=== PATIENT | female | born 1995 | race Two or more races ===

== ENCOUNTER 2017-07-08 04:31 | Inpatient (IN) | payer SELFPAY ==
[~2017-07-08] VITALS: Ht 154.9 cm; Wt 56.7 kg
--- NOTE | 2017-07-08 05:02 | PHYS DOC ---
Adult General Chief Complaint Chief Complaint: ABDOMINAL PAIN IN HPI HPI Patient is a 21 year old female who presents with abdominal pain in . The patient reports 2 day history of upper abdominal pain associated with many episodes of vomiting. She reports white vaginal discharge. She denies fevers/chills, hematemesis, diarrhea, constipation, dysuria/hematuria, vaginal bleeding. She is , at 7w0d by dates. Seen in clinic earlier this week for vaginal discharge, reports no significant finding after pelvic with cultures, & she denies possibility of sexually transmitted infection. She has not yet established care with an OB. Review of Systems Review of Systems Constitutional: Denies fever or chills HENT: Denies nasal congestion or sore throat Respiratory: Denies cough or shortness of breath Cardiovascular: Denies chest pain or edema GI: Reports abdominal pain, nausea, vomiting, denies bloody stools or diarrhea : Denies dysuria or hematuria, reports vaginal discharge. Musculoskeletal: Denies back pain or joint pain Integument: Denies rash or skin lesions Neurologic: Denies headache, focal weakness or sensory changes Current Medications Current Medications Current Medications Medications (Trade) Dose Ordered Sig/Yvrose Start Time Stop Time Status Last Admin Dose Admin Famotidine (Pepcid) 20 mg 1X ONCE 07/08/17 06:30 07/08/17 06:31 DC 07/08/17 06:30 20 MG Fentanyl Citrate (Fentanyl 2ml Vial) 50 mcg PRN Q15MIN PRN 07/08/17 05:30 07/09/17 05:29 07/08/17 05:30 50 MCG Lorazepam (Ativan) 1 mg 1X ONCE 07/08/17 06:30 07/08/17 06:31 DC 07/08/17 06:30 1 MG Metoclopramide HCl (Reglan) 10 mg 1X ONCE 07/08/17 05:30 07/08/17 05:31 DC 07/08/17 05:30 10 MG Ondansetron HCl (Zofran) 4 mg 1X ONCE 07/08/17 06:30 07/08/17 06:31 DC 07/08/17 06:30 4 MG Sodium Chloride 1,000 ml @ 250 mls/hr Q4H 07/08/17 08:40 07/08/17 12:39 DC 07/08/17 10:02 250 MLS/HR Allergies Allergies Allergies Coded Allergies Type Severity Reaction Last Updated Verified Penicillins Allergy Intermediate 07/08/17 Yes codeine Allergy Intermediate 07/08/17 Yes vancomycin Allergy Intermediate 07/08/17 Yes Physical Exam Physical Exam Constitutional: Well developed, well nourished, no acute distress, non-toxic appearance. HENT: Normocephalic, atraumatic, bilateral external ears normal, oropharynx moist, nose normal. Eyes: conjunctiva normal, no discharge. Neck: supple, no stridor. Cardiovascular: RRR, no murmurs, no edema. Lungs & Thorax: LCTAB, no wheezing, no respiratory distress. Abdomen: soft, RUQ & LUQ tenderness with voluntary guarding, no rebound tenderness, no RLQ tenderness, no masses or pulsatile masses, nondistended. Skin: Warm, dry, no erythema, no rash. Back: No CVA tenderness. Extremities: No tenderness, no edema. Neurologic: Alert and oriented X 3, no focal deficits noted. Psychologic: Affect normal, judgement normal, mood normal. Current Patient Data Vital Signs Vital Signs Date Time Temp Pulse Resp B/P (MAP) Pulse Ox O2 Delivery O2 Flow Rate FiO2 07/08/17 06:30 130 116/56 (76) 07/08/17 06:00 16 98 Room Air 07/08/17 05:08 98.0 98.0 Lab Values Laboratory Tests Test 07/08/17 04:58 07/08/17 05:01 07/08/17 05:05 Urine Collection Type Unknown Urine Color Yellow Urine Clarity Clear Urine pH 6.5 Urine Specific Rousseau >=1.030 Urine Protein 30 mg/dL (NEG-TRACE) Urine Glucose (UA) Negative mg/dL (NEG) Urine Ketones (Stick) >=80 mg/dL (NEG) Urine Blood Negative (NEG) Urine Nitrite Negative (NEG) Urine Bilirubin Small (NEG) Urine Urobilinogen Dipstick 1.0 mg/dL (0.2 mg/dL) Urine Leukocyte Esterase Negative (NEG) Urine RBC Occ /HPF (0-2) Urine WBC 1-4 /HPF (0-4) Urine Squamous Epithelial Cells Few /LPF Urine Bacteria Few /HPF (0-FEW) Urine Mucus Mod /LPF White Blood Count 6.3 x10^3/uL (4.0-11.0) Red Blood Count 4.82 x10^6/uL (3.50-5.40) Hemoglobin 12.8 g/dL (12.0-15.5) Hematocrit 39.2 % (36.0-47.0) Mean Corpuscular Volume 82 fL (79-100) Mean Corpuscular Hemoglobin 27 pg (25-35) Mean Corpuscular Hemoglobin Concent 33 g/dL (31-37) Red Cell Distribution Width 16.7 % (11.5-14.5) H Platelet Count 274 x10^3/uL (140-400) Neutrophils (%) (Auto) 79 % (31-73) H Lymphocytes (%) (Auto) 13 % (24-48) L Monocytes (%) (Auto) 7 % (0-9) Eosinophils (%) (Auto) 0 % (0-3) Basophils (%) (Auto) 1 % (0-3) Neutrophils # (Auto) 5.0 x10^3uL (1.8-7.7) Lymphocytes # (Auto) 0.8 x10^3/uL (1.0-4.8) L Monocytes # (Auto) 0.5 x10^3/uL (0.0-1.1) Eosinophils # (Auto) 0.0 x10^3/uL (0.0-0.7) Basophils # (Auto) 0.0 x10^3/uL (0.0-0.2) D-Dimer (Elena) 0.43 ug/mlFEU (0.00-0.50) Maternal Serum HCG Beta Subunit 74623 mIU/mL (0-5) H Sodium Level 139 mmol/L (136-145) Potassium Level 3.6 mmol/L (3.5-5.1) Chloride Level 102 mmol/L (98-107) Carbon Dioxide Level 26 mmol/L (21-32) Anion Gap 11 (6-14) Blood Urea Nitrogen 16 mg/dL (7-20) Creatinine 0.7 mg/dL (0.6-1.0) Estimated GFR (Cockcroft-Gault) 106.7 BUN/Creatinine Ratio 23 (6-20) H Glucose Level 106 mg/dL (70-99) H Calcium Level 9.6 mg/dL (8.5-10.1) Total Bilirubin 0.4 mg/dL (0.2-1.0) Aspartate Amino Transferase (AST) 18 U/L (15-37) Alanine Aminotransferase (ALT) 27 U/L (14-59) Alkaline Phosphatase 62 U/L (46-116) Total Protein 8.2 g/dL (6.4-8.2) Albumin 3.9 g/dL (3.4-5.0) Albumin/Globulin Ratio 0.9 (1.0-1.7) L Lipase 222 U/L (73-393) POC Urine HCG, Qualitative Hcg positive (Negative) Laboratory Tests 07/08/17 05:01 Laboratory Tests 07/08/17 05:01 EKG EKG [] Radiology/Procedures Radiology/Procedures Pelvic ultrasound read by the radiologist. Intrauterine gestational sac and yolk sac identified. pole measuring 7 weeks 1 day, but no heart tones. Concerning for demise. Ovaries normal. Small amount of free fluid. Right upper quadrant ultrasound read by the radiologist. No abnormalities including normal gallbladder.[] Course & Med Decision Making Course & Med Decision Making Pertinent Labs and Imaging studies reviewed. (See chart for details) The patient presents with abdominal pain & vomiting in first trimester of . Gave IV fluids & reglan. Obtained labs, UA, US. Radiology results pending at the end of my shift. Will transfer care to Dr. Elizondo to follow up results & disposition accordingly. The patient is in stable condition at the end of my shift. Amita Resendiz MD I assumed care of the patient at 0600. Dr. Espana and I discussed the patient 's case. We are waiting for ultrasound results. ED RN advised me that the patient was having dry heaves, she had become tachycardic, seemed to be very anxious, shaky, and hyperventilating. I went to visit the patient. The patient has vomited a small amount of fluid and is actively having dry heaves, she is tremulous, heart rate in the 130s. Patient states that she feels like she might be having a panic attack. Patient does not have a history of panic attacks or anxiety, but she said "I've seen my aunt go through a panic attack". Patient's pulse ox on room air is in the high 90s. She is having a sinus tachycardia in the 1 teens to 1:30. He has had only about 200 mL of her IV saline bolus, the IV is positional. Because her symptom was dry heaves and vomiting, with some epigastric discomfort , I ordered IV Zofran and IV Pepcid. A few minutes later, she continued to have tachycardia and shaking so I ordered 1 mg Ativan. 0700 ED nursing staff informed me that the patient was up to the bathroom in a wheelchair, she was very lightheaded, she became tachycardic into the 130s with that exertion. I rechecked the patient. She appears moderately sedated from the Ativan. She certainly is no longer anxious. I discussed the findings of her ultrasounds, including hospital demise. The patient told me that she felt like she might be having a miscarriage. I'm not sure based on what. The patient states this was an unplanned . Her OB doctor, in [facility], where she previously lived, had advised her to not get again because she had a lot of bleeding with her last and required a blood transfusion. She was using condoms and the condom broke. The patient states she is still having dry heaves. The patient has had her entire liter of normal saline and her heart rate is still running in the 120s to 140s with just minimal stimulation. We will check a d-dimer. We'll give her a second liter of normal saline. D-dimer is normal. The patient continued to have dry heaves and tachycardic episodes. I believe she should be admitted for further IV fluids, IV antiemetics , and further observation. She may be more dry than 1 L. A second liter was started. I discussed the case with Dr. Harp , on-call for NURSE [employer]CRU[employer]. She will admit the patient. I wrote bridge orders. [] Dragon Disclaimer Dragon Disclaimer This electronic medical record was generated, in whole or in part, using a voice recognition dictation system. Departure Departure Impression: Primary Impression: Hyperemesis gravidarum with dehydration Additional Impressions: First trimester Tachycardia Disposition: ADMITTED INPATIENT Condition: STABLE Problem Qualifiers AMITA RESENDIZ MD Jul 08, 2017 05:02 SAW ELIZONDO MD Jul 08, 2017 07:37
[2017-07-08 05:11] LABS: BASO % 1 % (0-3); EOS % 0 % (0-3); HEMATOCRIT 39.2 % (36.0-47.0); HEMOGLOBIN 12.8 g/dL (12.0-15.5); LYMPH # 0.8 x10^3/uL (1.0-4.8); LYMPH % 13 % (24-48); MEAN CORPUSCULAR HEMOGLOBIN 27 pg (25-35); MEAN CORPUSCULAR HGB CONC 33 g/dL (31-37); MEAN CORPUSCULAR VOLUME 82 fL (79-100); MONO % 7 % (0-9); NEUT % 79 % (31-73); PLATELET COUNT 274 x10^3/uL (140-400); RED BLOOD COUNT 4.82 x10^6/uL (3.50-5.40); RED CELL DISTRIBUTION WIDTH 16.7 % (11.5-14.5); WHITE BLOOD COUNT 6.3 x10^3/uL (4.0-11.0)
[2017-07-08 05:13] LABS: BILIRUBIN,URINE SMALL (NEG); GLUCOSE,URINE NEGATIVE (NEG); NITRITE,URINE NEGATIVE (NEG); PH,URINE 6.5; PROTEIN,URINE 30 mg/dL (NEG-TRACE)
[2017-07-08] MEDS ORDERED: IV NORMAL SALINE 1000ML BAG 1,000 ML IV ONE ×2 (05:15→07:30)
[2017-07-08 05:20] LABS: BACTERIA,URINE FEW /HPF (0-FEW); RBC,URINE OCC /HPF (0-2); SQUAMOUS EPITHELIAL CELL,UR FEW /LPF
[2017-07-08 05:25] LABS: CALCIUM 9.6 mg/dL (8.5-10.1); CREATININE 0.7 mg/dL (0.6-1.0); GFR 106.7; POTASSIUM 3.6 mmol/L (3.5-5.1)
[2017-07-08 05:30] LABS: ALBUMIN 3.9 g/dL (3.4-5.0); ALBUMIN/GLOBULIN RATIO 0.9 (1.0-1.7); TOTAL BILIRUBIN 0.4 mg/dL (0.2-1.0); TOTAL PROTEIN 8.2 g/dL (6.4-8.2)
[2017-07-08] MEDS ORDERED: fentaNYL PF VIAL 100 MCG/2 ML VIAL IV PRN (05:30)
[2017-07-08] MEDS ORDERED: METOCLOPRAMIDE HCL 10 MG/2 ML VIAL. IV ONE (05:30)
--- NOTE | 2017-07-08 06:06 | RAD ---
Abdominal ultrasound right upper quadrant: Reason for examination: Right upper quadrant pain with nausea and vomiting for 2 days. The pancreas was poorly visualized due to bowel gas. The liver appears to be normal in size at 13.4 cm in greatest dimension and is homogeneous in echogenicity. Right kidney measures 10.9 x 4.2 x 4.4 cm in greatest dimensions and shows normal cortical medullary differentiation, good blood flow and no evidence of mass or hydronephrosis. Gallbladder shows no cholelithiasis, sludge or wall thickening. Common bile duct is normal in caliber at 2.7 mm. IMPRESSION: Pancreas is not well visualized due to bowel gas. No other focal abnormalities evident in the right upper quadrant. Electronically signed by: Lorena Vásquez MD (07/08/2017 6:03 AM) [id number]
--- NOTE | 2017-07-08 06:13 | RAD ---
Obstetric ultrasound less than 14 weeks, transabdominal and transvaginal: Reason for examination: Right upper quadrant pain with nausea and vomiting for 2 days. Transabdominally, the uterus measures 10.4 x 3.9 cm longitudinally. Intrauterine gestational sac appears be present. The left ovary appears to measure 1.7 x 2.0 x 1.1 cm in greatest dimension. Right ovary appears to measure 2.8 x 1.7 x 2.0 cm in greatest dimension. Possible yolk sac is identified transabdominally. Transvaginally, the uterus measures 9.7 x 5.2 x 6 cm in greatest dimension. Intrauterine gestational sac is present and a yolk sac is identified but appears to be the pole measures 1.1 cm in greatest dimension which would correspond to gestational age of 7 weeks 1 day. Cardiac activity however is not identified. The right ovary transvaginally measures 2.0 x 2.3 x 1.9 cm in size without focal lesion. Left ovary appears to measure 1.4 x 2.5 x 1.5 cm in greatest dimension with no focal abnormality cervix is normal bleed and appears to be closed. A small amount of free fluid is seen in the pelvic cul-de-sac. IMPRESSION: Intrauterine gestational sac with a yolk sac identified and a possible pole with a size corresponding to gestational age of 7 weeks 1 day. No heart activity was identified. This would be consistent with demise. Recommend clinical correlation and follow-up. Electronically signed by: Lorena Vásquez MD (07/08/2017 6:11 AM) [facility]
[2017-07-08] MEDS ORDERED: FAMOTIDINE 20 MG/2 ML VIAL ONE (06:17)
[2017-07-08] MEDS ORDERED: ONDANSETRON PF 4 MG/2 ML VIAL. ONE (06:17)
[2017-07-08] MEDS ORDERED: FAMOTIDINE 20 MG/2 ML VIAL IVP ONE (06:30)
[2017-07-08] MEDS ORDERED: ONDANSETRON PF 4 MG/2 ML VIAL. IV ONE (06:30)
[2017-07-08] MEDS ORDERED: IV NORMAL SALINE 1000ML BAG 1,000 ML IV SCH (08:40)
[2017-07-08] MEDS ORDERED: ONDANSETRON PF 4 MG/2 ML VIAL. IV PRN (08:45)
[2017-07-08 10:05] VITALS: BP 93/55
--- NOTE | 2017-07-08 10:25 | PDOC ---
SUBJECTIVE Subjective 21 yrs old female G$P3 LMP MAY 18 7 weeks by sonogram no vaginal bleeding Has extreme nausea vomiting OBJECTIVE Vital Signs Vital Signs Date Time Temp Pulse Resp B/P (MAP) Pulse Ox O2 Delivery O2 Flow Rate FiO2 07/08/17 10:05 98.1 75 18 93/55 (68) 100 Room Air 98.1 07/08/17 06:30 130 116/56 (76) 07/08/17 06:00 110 16 105/55 (72) 98 Room Air 07/08/17 05:30 104 23 103/56 (72) 100 Room Air 07/08/17 05:08 98.0 96 16 103/55 (71) 97 Room Air 98.0 I & O Intake and Output 07/09/17 07:00 Intake Total 1000 ml Balance 1000 ml Intake IV Total 1000 ml PHYSICAL EXAM Physical Exam Vital siogns stable Has lot of Dehydration Tongue very Dry Patient getting IV fluids ASSESSMENT/PLAN Assessment/Plan Observation and further treatment Problems: COMMENT Lab Laboratory Tests Test 07/08/17 04:58 07/08/17 05:01 07/08/17 05:05 Urine Collection Type Unknown Urine Color Yellow Urine Clarity Clear Urine pH 6.5 Urine Specific Addison >=1.030 Urine Protein 30 mg/dL (NEG-TRACE) Urine Glucose (UA) Negative mg/dL (NEG) Urine Ketones (Stick) >=80 mg/dL (NEG) Urine Blood Negative (NEG) Urine Nitrite Negative (NEG) Urine Bilirubin Small (NEG) Urine Urobilinogen Dipstick 1.0 mg/dL (0.2 mg/dL) Urine Leukocyte Esterase Negative (NEG) Urine RBC Occ /HPF (0-2) Urine WBC 1-4 /HPF (0-4) Urine Squamous Epithelial Cells Few /LPF Urine Bacteria Few /HPF (0-FEW) Urine Mucus Mod /LPF White Blood Count 6.3 x10^3/uL (4.0-11.0) Red Blood Count 4.82 x10^6/uL (3.50-5.40) Hemoglobin 12.8 g/dL (12.0-15.5) Hematocrit 39.2 % (36.0-47.0) Mean Corpuscular Volume 82 fL (79-100) Mean Corpuscular Hemoglobin 27 pg (25-35) Mean Corpuscular Hemoglobin Concent 33 g/dL (31-37) Red Cell Distribution Width 16.7 % (11.5-14.5) Platelet Count 274 x10^3/uL (140-400) Neutrophils (%) (Auto) 79 % (31-73) Lymphocytes (%) (Auto) 13 % (24-48) Monocytes (%) (Auto) 7 % (0-9) Eosinophils (%) (Auto) 0 % (0-3) Basophils (%) (Auto) 1 % (0-3) Neutrophils # (Auto) 5.0 x10^3uL (1.8-7.7) Lymphocytes # (Auto) 0.8 x10^3/uL (1.0-4.8) Monocytes # (Auto) 0.5 x10^3/uL (0.0-1.1) Eosinophils # (Auto) 0.0 x10^3/uL (0.0-0.7) Basophils # (Auto) 0.0 x10^3/uL (0.0-0.2) D-Dimer (Elena) 0.43 ug/mlFEU (0.00-0.50) Maternal Serum HCG Beta Subunit 69608 mIU/mL (0-5) Sodium Level 139 mmol/L (136-145) Potassium Level 3.6 mmol/L (3.5-5.1) Chloride Level 102 mmol/L (98-107) Carbon Dioxide Level 26 mmol/L (21-32) Anion Gap 11 (6-14) Blood Urea Nitrogen 16 mg/dL (7-20) Creatinine 0.7 mg/dL (0.6-1.0) Estimated GFR (Cockcroft-Gault) 106.7 BUN/Creatinine Ratio 23 (6-20) Glucose Level 106 mg/dL (70-99) Calcium Level 9.6 mg/dL (8.5-10.1) Total Bilirubin 0.4 mg/dL (0.2-1.0) Aspartate Amino Transf (AST/SGOT) 18 U/L (15-37) Alanine Aminotransferase (ALT/SGPT) 27 U/L (14-59) Alkaline Phosphatase 62 U/L (46-116) Total Protein 8.2 g/dL (6.4-8.2) Albumin 3.9 g/dL (3.4-5.0) Albumin/Globulin Ratio 0.9 (1.0-1.7) Lipase 222 U/L (73-393) Bedside Urine HCG, Qualitative Hcg positive (Negative) STACEY MENDIOLA MD Jul 08, 2017 10:25
--- NOTE | 2017-07-08 10:47 | HP ---
ADMIT DATE: 07/08/2017 CHIEF COMPLAINT AND HISTORY OF PRESENT ILLNESS: This patient is a 21-year-old white female who is 4, para 3, LMP 05/18/2017, comes into the Emergency Room because of excessive nausea and vomiting, unable to eat, unable to drink. The patient was seen ER physician and admitted to the hospital because of hyperemesis and she also had an anxiety attack in the Emergency Room. PHYSICAL EXAMINATION: VITAL SIGNS: Being stable. HEAD, EYES, NOSE, THROAT: Exam within normal limits. The patient is quite anxious and tongue is dry, dehydration seen. ABDOMEN: Feels soft. PELVIC: Shows external genitalia being normal. Cervical os is closed. Uterus feels bulky. No adnexal masses are palpable. EXTREMITIES: No edema of feet. IMPRESSION: 4, early with hyperemesis. PLAN: IV fluids, observation and treatment. STACEY MENDIOLA MD DR: ELAN/keshia JOB#: [id number] / [id number]
[2017-07-08] MEDS ORDERED: MULT1TAB46 PO (14:15)
[2017-07-08 14:54] VITALS: BP 106/64
[2017-07-08] MEDS ORDERED: ACETAMINOPHEN 325 MG TABLET. PO PRN (19:30)
[2017-07-08] MEDS: IV DEXTROSE 5%-LACT RINGERS 1,000 ML IV SCH (19:46)
[2017-07-08] MEDS: ONDANSETRON PF 4 MG/2 ML VIAL. IV PRN (19:47)
[2017-07-08] MEDS ORDERED: ACETAMINOPHEN 325 MG SUPP.RECT. PR PRN (20:00)
[2017-07-08] MEDS ORDERED: ACETAMINOPHEN 650 MG SUPP.RECT. PR PRN (20:30)
[2017-07-08 23:11] VITALS: BP 102/63
[2017-07-09] MEDS: ONDANSETRON PF 4 MG/2 ML VIAL. IV PRN ×3 (02:41→19:42)
[2017-07-09] MEDS: IV DEXTROSE 5%-LACT RINGERS 1,000 ML IV SCH (02:42)
[2017-07-09 05:57] VITALS: BP 80/47
[2017-07-09 06:38] LABS: BASO % 1 % (0-3); EOS % 2 % (0-3); HEMATOCRIT 32.6 % (36.0-47.0); HEMOGLOBIN 10.5 g/dL (12.0-15.5); LYMPH # 1.6 x10^3/uL (1.0-4.8); LYMPH % 31 % (24-48); MEAN CORPUSCULAR HEMOGLOBIN 27 pg (25-35); MEAN CORPUSCULAR HGB CONC 32 g/dL (31-37); MEAN CORPUSCULAR VOLUME 82 fL (79-100); MONO % 14 % (0-9); NEUT % 52 % (31-73); PLATELET COUNT 212 x10^3/uL (140-400); RED BLOOD COUNT 3.98 x10^6/uL (3.50-5.40); RED CELL DISTRIBUTION WIDTH 16.9 % (11.5-14.5); WHITE BLOOD COUNT 5.1 x10^3/uL (4.0-11.0)
[2017-07-09 06:48] LABS: ALBUMIN 2.8 g/dL (3.4-5.0); ALBUMIN/GLOBULIN RATIO 0.8 (1.0-1.7); CALCIUM 8.4 mg/dL (8.5-10.1); CREATININE 0.6 mg/dL (0.6-1.0); GFR 127.5; POTASSIUM 3.2 mmol/L (3.5-5.1); TOTAL BILIRUBIN 0.3 mg/dL (0.2-1.0); TOTAL PROTEIN 6.1 g/dL (6.4-8.2)
--- NOTE | 2017-07-09 10:04 | PDOC ---
SUBJECTIVE Subjective Patient getting better Able to eat today No vomiting now OBJECTIVE Objective Vital signs stable Vital Signs Vital Signs Date Time Temp Pulse Resp B/P (MAP) Pulse Ox O2 Delivery O2 Flow Rate FiO2 07/09/17 05:57 98.1 69 12 80/47 (58) 98.1 07/08/17 23:11 98.2 76 14 102/63 (76) 98.2 07/08/17 17:32 97.3 97.3 07/08/17 14:54 83 18 106/64 (78) 100 Room Air 07/08/17 10:05 98.1 75 18 93/55 (68) 100 Room Air 98.1 PHYSICAL EXAM Physical Exam Abdomen soft No vaginal bleeding ASSESSMENT/PLAN Assessment/Plan Plan to keep patient one [place] day Plan dismissal tomorrow Problems: COMMENT Lab Laboratory Tests Test 07/09/17 05:35 White Blood Count 5.1 x10^3/uL (4.0-11.0) Red Blood Count 3.98 x10^6/uL (3.50-5.40) Hemoglobin 10.5 g/dL (12.0-15.5) Hematocrit 32.6 % (36.0-47.0) Mean Corpuscular Volume 82 fL (79-100) Mean Corpuscular Hemoglobin 27 pg (25-35) Mean Corpuscular Hemoglobin Concent 32 g/dL (31-37) Red Cell Distribution Width 16.9 % (11.5-14.5) Platelet Count 212 x10^3/uL (140-400) Neutrophils (%) (Auto) 52 % (31-73) Lymphocytes (%) (Auto) 31 % (24-48) Monocytes (%) (Auto) 14 % (0-9) Eosinophils (%) (Auto) 2 % (0-3) Basophils (%) (Auto) 1 % (0-3) Neutrophils # (Auto) 2.7 x10^3uL (1.8-7.7) Lymphocytes # (Auto) 1.6 x10^3/uL (1.0-4.8) Monocytes # (Auto) 0.7 x10^3/uL (0.0-1.1) Eosinophils # (Auto) 0.1 x10^3/uL (0.0-0.7) Basophils # (Auto) 0.0 x10^3/uL (0.0-0.2) Sodium Level 139 mmol/L (136-145) Potassium Level 3.2 mmol/L (3.5-5.1) Chloride Level 105 mmol/L (98-107) Carbon Dioxide Level 25 mmol/L (21-32) Anion Gap 9 (6-14) Blood Urea Nitrogen 6 mg/dL (7-20) Creatinine 0.6 mg/dL (0.6-1.0) Estimated GFR (Cockcroft-Gault) 127.5 BUN/Creatinine Ratio 10 (6-20) Glucose Level 105 mg/dL (70-99) Calcium Level 8.4 mg/dL (8.5-10.1) Total Bilirubin 0.3 mg/dL (0.2-1.0) Aspartate Amino Transf (AST/SGOT) 11 U/L (15-37) Alanine Aminotransferase (ALT/SGPT) 21 U/L (14-59) Alkaline Phosphatase 50 U/L (46-116) Total Protein 6.1 g/dL (6.4-8.2) Albumin 2.8 g/dL (3.4-5.0) Albumin/Globulin Ratio 0.8 (1.0-1.7) STACEY MENDIOLA MD Jul 09, 2017 10:04
[2017-07-09 11:30] VITALS: BP 103/52
[2017-07-09] MEDS: POTASSIUM CHLORIDE IV SCH ×2 (11:30→19:30)
[2017-07-09] MEDS: DEXTROSE 5% IV SCH ×2 (11:30→19:30)
[2017-07-09] MEDS: LACT RINGERS IV SCH ×2 (11:30→19:30)
[2017-07-09 18:12] VITALS: BP 89/57
[2017-07-09 22:30] VITALS: BP 89/55
[2017-07-10] MEDS: ONDANSETRON PF 4 MG/2 ML VIAL. IV PRN ×2 (00:33→06:20)
[2017-07-10 02:30] VITALS: BP 86/51
[2017-07-10] MEDS: POTASSIUM CHLORIDE IV SCH (06:19)
[2017-07-10] MEDS: DEXTROSE 5% IV SCH (06:19)
[2017-07-10] MEDS: LACT RINGERS IV SCH (06:19)
[2017-07-10 06:29] VITALS: BP 89/50
[2017-07-10 08:52] VITALS: BP 103/68
[2017-07-10 12:35] VITALS: BP 89/58
[2017-07-10] MEDS ORDERED: ONDANSETRON ODT 4 MG TAB.RAPDIS. PO PRN (12:45)
--- NOTE | 2017-07-10 12:57 | PDOC ---
SUBJECTIVE Subjective Patient feeling ok Likes to go home OBJECTIVE Objective Abdomen soft No bleeding No vomiting Vital Signs Vital Signs Date Time Temp Pulse Resp B/P (MAP) Pulse Ox O2 Delivery O2 Flow Rate FiO2 07/10/17 12:35 98.6 75 18 89/58 (68) 98 Room Air 98.6 07/10/17 09:02 26 Room Air 07/10/17 08:52 98.1 79 103/68 (80) 100 Room Air 98.1 07/10/17 06:29 98.1 85 16 89/50 (63) 99 Room Air 98.1 07/10/17 02:30 98.4 81 16 86/51 (63) 99 Room Air 98.4 07/09/17 22:30 98.1 74 16 89/55 (66) 98 Room Air 98.1 07/09/17 18:12 98.3 77 16 89/57 (68) 99 Room Air 98.3 I & O Intake and Output 07/11/17 07:00 Intake Total 850 ml Output Total 350 ml Balance 500 ml Intake Oral 350 ml IV Total 500 ml Output Urine Total 350 ml # Voids 1 PHYSICAL EXAM Physical Exam Abdomen soft Vital signs stable ASSESSMENT/PLAN Assessment/Plan Plan dismissal today will see her in one week in office Problems: STACEY MENDIOLA MD Jul 10, 2017 12:57
== END 2017-07-10 13:30 | disposition home or self-care (01) | DRG 781 ==
LOC: ER 04:31 → 3 NORTH 08:40
PROVIDERS: ADMIT Obstetrics & Gynecology; ATTEND Obstetrics & Gynecology
DX: O21.1 Hyperemesis gravidarum with metabolic disturbance (principal); O99.411 Diseases of the circulatory system complicating pregnancy, first trimester; O99.281 Endocrine, nutritional and metabolic diseases complicating pregnancy, first trimester; F41.9 Anxiety disorder, unspecified; Z88.1 Allergy status to other antibiotic agents; Z88.5 Allergy status to narcotic agent; Z88.0 Allergy status to penicillin; R00.0 Tachycardia, unspecified; O99.341 Other mental disorders complicating pregnancy, first trimester; Z3A.01 Less than 8 weeks gestation of pregnancy
CPT/HCPCS: 36415; 76705; 76801; 76817; 80053; 81001; 81025; 83690; 84702; 85025; 85379; 96361; 96374; 96375; J2060; J2405; J2765; J3010; J3480; J7030; S0028; 99285-25

== ENCOUNTER 2017-07-21 22:00 | Emergency (ER) | payer SELFPAY ==
[~2017-07-21] VITALS: Ht 154.9 cm; Wt 56.7 kg
[~2017-07-21 22:00] MED LIST: MULT1TAB46 PO
[2017-07-21] MEDS ORDERED: IV NORMAL SALINE 1000ML BAG 1,000 ML IV ONE ×2 (22:30→23:30)
[2017-07-21] MEDS ORDERED: PROMETHAZINE 12.5 MG in IV DEXTROSE 5% 50 ML IV PRN (22:30)
[2017-07-21 22:37] LABS: BASO # 0.1 x10^3/uL (0.0-0.2); BASO % 1 % (0-3); EOS % 1 % (0-3); HEMATOCRIT 40.9 % (36.0-47.0); HEMOGLOBIN 13.3 g/dL (12.0-15.5); LYMPH # 1.7 x10^3/uL (1.0-4.8); LYMPH % 16 % (24-48); MEAN CORPUSCULAR HEMOGLOBIN 27 pg (25-35); MEAN CORPUSCULAR HGB CONC 33 g/dL (31-37); MEAN CORPUSCULAR VOLUME 82 fL (79-100); MONO % 9 % (0-9); NEUT % 74 % (31-73); PLATELET COUNT 319 x10^3/uL (140-400); RED BLOOD COUNT 5.03 x10^6/uL (3.50-5.40); RED CELL DISTRIBUTION WIDTH 16.3 % (11.5-14.5); WHITE BLOOD COUNT 10.7 x10^3/uL (4.0-11.0)
[2017-07-21 23:28] LABS: CALCIUM 9.4 mg/dL (8.5-10.1); CREATININE 0.6 mg/dL (0.6-1.0); GFR 127.5; POTASSIUM 3.1 mmol/L (3.5-5.1)
[2017-07-21 23:34] LABS: ALBUMIN 3.8 g/dL (3.4-5.0); ALBUMIN/GLOBULIN RATIO 0.9 (1.0-1.7); TOTAL BILIRUBIN 0.4 mg/dL (0.2-1.0); TOTAL PROTEIN 8.1 g/dL (6.4-8.2)
--- NOTE | 2017-07-22 00:19 | PHYS DOC ---
Past Medical History Past Medical History: No Pertinent History Past Surgical History: No Surgical History Alcohol Use: None Drug Use: None Adult General Chief Complaint Chief Complaint: HEMATEMESIS/VOMITING BLOOD HPI HPI Patient is a 21 year old G4, P3, estimated 9 weeks' gestation female who presents with intermittent daily vomiting for the past several days. Patient was treated emergency department one week ago for the same. States she is unable to keep fluids or food down. Denies weight loss since . Denies chest pain palpitations, shortness of breath, fever chills, hematemesis, abdominal pain, urinary frequency urgency or dysuria. Patient has not yet established with [employer] service.[] Review of Systems Review of Systems Review symptoms as per history of present illness. All other review symptoms are negative. Current Medications Current Medications Current Medications Medications (Trade) Dose Ordered Sig/Yvrose Start Time Stop Time Status Last Admin Dose Admin Promethazine HCl 12.5 mg/Dextrose 50.5 ml @ 151.5 mls/ hr PRN Q6HRS PRN 07/21/17 22:30 07/21/17 22:50 151.5 MLS/HR Sodium Chloride 1,000 ml @ 1,000 mls/hr 1X ONCE 07/21/17 23:30 07/22/17 00:29 Allergies Allergies Allergies Coded Allergies Type Severity Reaction Last Updated Verified Penicillins Allergy Intermediate 07/08/17 Yes codeine Allergy Intermediate 07/08/17 Yes vancomycin Allergy Intermediate 07/08/17 Yes Physical Exam Physical Exam Constitutional: Well developed, well nourished, no acute distress, non-toxic appearance. [] HENT: Normocephalic, atraumatic, bilateral external ears normal, oropharynx moist, no oral exudates, nose normal. [] Eyes: PERRLA, EOMI, conjunctiva normal, no discharge. [] Neck: Normal range of motion, no tenderness, supple, no stridor. [] Cardiovascular:Heart rate regular rhythm, no murmur [] Lungs & Thorax: Bilateral breath sounds clear to auscultation [] Abdomen: Bowel sounds normal, soft, nontender.. [] Skin: Warm, dry, no erythema, no rash. [] Back: No tenderness, no CVA tenderness. [] Extremities: No tenderness, no cyanosis, no clubbing, ROM intact, no edema. [] Neurologic: Alert and oriented X 3, normal motor function, normal sensory function, no focal deficits noted. [] Psychologic: Affect normal, judgement normal, mood normal. [] Current Patient Data Vital Signs Vital Signs Date Time Temp Pulse Resp B/P (MAP) Pulse Ox O2 Delivery O2 Flow Rate FiO2 07/21/17 22:32 98.8 85 18 120/68 (85) 99 Room Air 98.8 Lab Values Laboratory Tests Test 07/21/17 22:20 07/21/17 22:30 07/21/17 23:00 POC Urine HCG, Qualitative Hcg positive (Negative) White Blood Count 10.7 x10^3/uL (4.0-11.0) Red Blood Count 5.03 x10^6/uL (3.50-5.40) Hemoglobin 13.3 g/dL (12.0-15.5) Hematocrit 40.9 % (36.0-47.0) Mean Corpuscular Volume 82 fL (79-100) Mean Corpuscular Hemoglobin 27 pg (25-35) Mean Corpuscular Hemoglobin Concent 33 g/dL (31-37) Red Cell Distribution Width 16.3 % (11.5-14.5) H Platelet Count 319 x10^3/uL (140-400) Neutrophils (%) (Auto) 74 % (31-73) H Lymphocytes (%) (Auto) 16 % (24-48) L Monocytes (%) (Auto) 9 % (0-9) Eosinophils (%) (Auto) 1 % (0-3) Basophils (%) (Auto) 1 % (0-3) Neutrophils # (Auto) 7.9 x10^3uL (1.8-7.7) H Lymphocytes # (Auto) 1.7 x10^3/uL (1.0-4.8) Monocytes # (Auto) 0.9 x10^3/uL (0.0-1.1) Eosinophils # (Auto) 0.1 x10^3/uL (0.0-0.7) Basophils # (Auto) 0.1 x10^3/uL (0.0-0.2) Sodium Level 138 mmol/L (136-145) Potassium Level 3.1 mmol/L (3.5-5.1) L Chloride Level 101 mmol/L (98-107) Carbon Dioxide Level 24 mmol/L (21-32) Anion Gap 13 (6-14) Blood Urea Nitrogen 22 mg/dL (7-20) H Creatinine 0.6 mg/dL (0.6-1.0) Estimated GFR (Cockcroft-Gault) 127.5 BUN/Creatinine Ratio 37 (6-20) H Glucose Level 107 mg/dL (70-99) H Calcium Level 9.4 mg/dL (8.5-10.1) Total Bilirubin 0.4 mg/dL (0.2-1.0) Aspartate Amino Transferase (AST) 12 U/L (15-37) L Alanine Aminotransferase (ALT) 17 U/L (14-59) Alkaline Phosphatase 52 U/L (46-116) Total Protein 8.1 g/dL (6.4-8.2) Albumin 3.8 g/dL (3.4-5.0) Albumin/Globulin Ratio 0.9 (1.0-1.7) L Laboratory Tests 07/21/17 22:30 Laboratory Tests 07/21/17 23:00 EKG EKG [] Radiology/Procedures Radiology/Procedures [] Course & Med Decision Making Course & Med Decision Making Pertinent Labs and Imaging studies reviewed. (See chart for details) [IV fluids and antiemetics given. Clinical improvement. Please treat supportively.] Dragon Disclaimer Dragon Disclaimer This electronic medical record was generated, in whole or in part, using a voice recognition dictation system. Departure Departure Impression: Primary Impression: Vomiting affecting Additional Impression: Hypokalemia Disposition: ADMITTED INPATIENT Condition: GOOD Referrals: NO PCP (PCP) JONAS PATIÑO MD Patient Instructions: Hyperemesis Gravidarum Additional Instructions: Please drink clear liquids and take nausea medication as directed. 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 Return to the ED if new or worsening symptoms. Problem Qualifiers AFUAJARETT DE ANDA Jul 22, 2017 00:19
[2017-07-22] MEDS ORDERED: METOCLOPRAMIDE HCL 10 MG/2 ML VIAL. IV ONE (00:30)
[2017-07-22] MEDS: POTASSIUM CHLORIDE 20 MEQ TABLET.ER. PO ONE ×2 (00:35→01:28)
[2017-07-22] MEDS ORDERED: ONDANSETRON PF 4 MG/2 ML VIAL. IV ONE (00:45)
[2017-07-22 02:00] VITALS: BP 139/86
== END 2017-07-22 02:11 | disposition home or self-care (01) ==
LOC: ER 22:00
DX: O21.0 Mild hyperemesis gravidarum (principal); O99.281 Endocrine, nutritional and metabolic diseases complicating pregnancy, first trimester; E87.6 Hypokalemia; Z3A.09 9 weeks gestation of pregnancy; Z88.0 Allergy status to penicillin; Z88.1 Allergy status to other antibiotic agents; Z88.5 Allergy status to narcotic agent
CPT/HCPCS: 36415; 80053; 81025; 85025; 96361; 96365; 96375; 99285; J2405; J2550; J2765; J7030